=== PATIENT | female | born 1985 | race American Indian/Alaskan Native ===

== ENCOUNTER 2016-07-30 00:48 | Emergency (ER) | payer MEDICAID ==
[2016-07-30 01:03] VITALS: BP 132/55
[2016-07-30 01:17] LABS: Basophils % (Auto) 0.6 % (0.0-1.8); Eosinophils % (Auto) 0.9 % (0.0-4.3); Hematocrit 39.8 % (30.3-42.9); Hemoglobin 13.1 gm/dl (10.1-14.3); Mean Corpuscular HGB Conc 33 % (30-34); Mean Corpuscular Hemoglobin 30 pg (28-32); Mean Corpuscular Volume 90 fl (79-97); Platelet Count 274 K/mm3 (140-440); Red Blood Count 4.43 M/mm3 (3.65-5.03); Red Cell Distribution Width 13.9 % (13.2-15.2); White Blood Count 6.9 K/mm3 (4.5-11.0)
[2016-07-30 02:24] LABS: Bilirubin,Urine NEG (Negative); Blood,Urine NEG (Negative); Ketones,Urine TR mg/dL (Negative); Leukocyte Esterase,Urine NEG (Negative); Mucus,Urine 3+ /HPF; Nitrite,Urine NEG (Negative)
[2016-07-30 02:28] LABS: Alanine Aminotransferase 16 units/L (7-56); Albumin 4.3 g/dL (3.9-5); Albumin/Globulin Ratio 1.3 %; Alkaline Phosphatase 88 units/L (35-129); Anion Gap 16 mmol/L; BUN/Creatinine Ratio 13.33; Bilirubin,Total 0.3 mg/dL (0.1-1.2); Blood Urea Nitrogen 8 mg/dL (7-17); Calcium 9.2 mg/dL (8.4-10.2); Carbon Dioxide 27 mmol/L (22-30); Chloride 97.8 mmol/L (98-107); Glucose 105 mg/dL (65-100); Lipase 35 units/L (13-60); Potassium 3.2 mmol/L (3.6-5.0); Sodium 138 mmol/L (137-145); Total Protein 7.7 g/dL (6.3-8.2)
[2016-07-30] MEDS ORDERED: TORADOL IM ONE (02:53)
--- NOTE | 2016-07-30 02:53 | Emergency Department Report ---
ED Back Pain/Injury HPI - General Chief Complaint: Back Pain/Injury Stated Complaint: LOWER BACK PAIN Time Seen by Provider: 07/30/16 02:48 Source: patient Limitations: No Limitations - History of Present Illness Initial Comments: 31 female presents to emergency room with complaint of mid back and right flank pain for 2 weeks. Denies any injury. Complains of right flank pain increase activities and movement. Patient says he is doing a lot of sodas sobbing in 2 weeks ago since this started expressing pain and right flank area. Does complains of increased frequency urination but denies any blood in urine. MD Complaint: back pain -: Gradual, week(s) (2) Similar Symptoms Previously: No Place: home Radiation: none Severity: mild Severity scale (0 -10): 2 Quality: burning, dull Consistency: constant Improves With: none Worsens With: movement, walking Context: turning/twisting Associated Symptoms: denies other symptoms. denies: abdominal pain - Related Data Previous Rx's Medication Instructions Recorded Last Taken Type Acetaminophen/Codeine [Tylenol 1 tab PO Q6H PRN #12 tab 07/30/16 Unknown Rx /Codeine # 3 tab] Baclofen 20 mg PO BID #14 tablet 07/30/16 Unknown Rx Ketorolac [Toradol] 10 mg PO Q6H PRN #12 tablet 07/30/16 Unknown Rx Allergies Allergy/AdvReac Type Severity Reaction Status Date / Time No Known Allergies Allergy Unverified 10/17/13 12:10 ED Review of Systems ROS: Stated complaint: LOWER BACK PAIN Other details as noted in HPI Comment: All other systems reviewed and negative Constitutional: denies: chills, fever Eyes: denies: eye pain, eye discharge, vision change ENT: denies: ear pain, throat pain Respiratory: denies: cough, shortness of breath, wheezing Cardiovascular: denies: chest pain, palpitations Endocrine: no symptoms reported Gastrointestinal: denies: abdominal pain, nausea, diarrhea Genitourinary: as per HPI, frequency. denies: urgency, dysuria, discharge Musculoskeletal: as per HPI, back pain. denies: joint swelling, arthralgia Skin: denies: rash, lesions Neurological: denies: headache, weakness, paresthesias Psychiatric: denies: anxiety, depression Hematological/Lymphatic: denies: easy bleeding, easy bruising ED Past Medical Hx - Past Medical History Previous Medical History?: No - Surgical History Past Surgical History?: Yes Additional Surgical History: Tubal - Social History Smoking Status: Current Every Day Smoker Substance Use Type: Alcohol - Medications Home Medications: Home Medications Medication Instructions Recorded Confirmed Last Taken Type Acetaminophen/Codeine [Tylenol 1 tab PO Q6H PRN #12 tab 07/30/16 Unknown Rx /Codeine # 3 tab] Baclofen 20 mg PO BID #14 tablet 07/30/16 Unknown Rx Ketorolac [Toradol] 10 mg PO Q6H PRN #12 tablet 07/30/16 Unknown Rx ED Physical Exam - General Limitations: No Limitations General appearance: alert, in no apparent distress - Head Head exam: Present: atraumatic, normocephalic - Eye Eye exam: Present: normal appearance, PERRL, EOMI Pupils: Present: normal accommodation - ENT ENT exam: Present: normal exam, mucous membranes moist - Neck Neck exam: Present: normal inspection - Respiratory Respiratory exam: Present: normal lung sounds bilaterally. Absent: respiratory distress - Cardiovascular Cardiovascular Exam: Present: regular rate, normal rhythm. Absent: systolic murmur, diastolic murmur, rubs, gallop - GI/Abdominal GI/Abdominal exam: Present: soft, normal bowel sounds - Expanded Exam Expanded Female exam: Present: deferred - Extremities Exam Extremities exam: Present: normal inspection, full ROM - Back Exam Back exam: Present: normal inspection, full ROM, CVA tenderness (R) (mild), muscle spasm, paraspinal tenderness (right T10 to L3 area) - Neurological Exam Neurological exam: Present: alert, oriented X3, CN II-XII intact, normal gait, reflexes normal - Psychiatric Psychiatric exam: Present: normal affect, normal mood - Skin Skin exam: Present: warm, dry, intact, normal color. Absent: rash ED Course Vital Signs 07/30/16 00:55 Temperature 98.7 F Pulse Rate 83 Respiratory 18 Rate Blood Pressure 132/55 [Right] O2 Sat by Pulse 99 Oximetry ED Medical Decision Making - Lab Data Result diagrams: 07/30/16 01:05 07/30/16 01:05 - Radiology Data Radiology results: pending (patient refuses to have CT scan of her abdomen and pelvis today) Critical Care Time: No Critical care attestation.: If time is entered above; I have spent that time in minutes in the direct care of this critically ill patient, excluding procedure time. ED Disposition Clinical Impression: Flank pain, acute Disposition: DISCHARGED TO HOME OR SELFCARE Is pt being admited?: No Does the pt Need Aspirin: No Condition: Good Instructions: Flank Pain (ED) Prescriptions: Acetaminophen/Codeine [Tylenol /Codeine # 3 tab] 1 tab PO Q6H PRN #12 tab PRN Reason: Pain Baclofen 20 mg PO BID #14 tablet Ketorolac [Toradol] 10 mg PO Q6H PRN #12 tablet PRN Reason: Pain Referrals: PRIMARY CARE,MD [Primary Care Provider] - 3-5 Days
[2016-07-30] MEDS ORDERED: K-DUR PO ONE (02:54)
== END 2016-07-30 03:24 | disposition home or self-care (01) ==
LOC: ED 00:48
DX: M54.5 Low back pain (principal); R10.9 Unspecified abdominal pain; F17.200 Nicotine dependence, unspecified, uncomplicated; Z98.51 Tubal ligation status
CPT/HCPCS: 36415; 80053; 81001; 83690; 84703; 85025; 96372; 99283; J1885

== ENCOUNTER 2017-05-17 20:07 | Emergency (ER) | payer MEDICAID ==
[2017-05-17 21:21] VITALS: BP 137/89
[2017-05-17] MEDS ORDERED: TYLENOL PO ONE (21:24)
[2017-05-17] MEDS ORDERED: TYLENOL ONE (21:27)
[2017-05-17 21:55] LABS: HCG Qualitative,Urine Negative (Negative)
[2017-05-17 21:59] LABS: Bilirubin,Urine NEG (Negative); Blood,Urine SM (Negative); Color,Urine Yellow (Yellow); Mucus,Urine FEW /HPF; Nitrite,Urine NEG (Negative); Protein,Urine <15 mg/dL mg/dL (Negative)
[2017-05-17 22:01] LABS: Basophils % (Auto) 0.1 % (0.0-1.8); Eosinophils % (Auto) 0.1 % (0.0-4.3); Hematocrit 40.5 % (30.3-42.9); Hemoglobin 13.5 gm/dl (10.1-14.3); Lymphocytes # (Auto) 1.2 K/mm3 (1.2-5.4); Lymphocytes % (Auto) 28.6 % (13.4-35.0); Mean Corpuscular HGB Conc 34 % (30-34); Mean Corpuscular Hemoglobin 30 pg (28-32); Mean Corpuscular Volume 91 fl (79-97); Monocytes # (Auto) 0.4 K/mm3 (0.0-0.8); Monocytes % (Auto) 9.2 % (0.0-7.3); Platelet Count 256 K/mm3 (140-440); Red Blood Count 4.46 M/mm3 (3.65-5.03); Red Cell Distribution Width 13.5 % (13.2-15.2)
[2017-05-17 22:24] LABS: Alanine Aminotransferase 13 units/L (7-56); Albumin 4.3 g/dL (3.9-5); BUN/Creatinine Ratio 18; Blood Urea Nitrogen 9 mg/dL (7-17); Calcium 8.8 mg/dL (8.4-10.2); Hemolysis Index 2
== END 2017-05-17 23:50 | disposition left against medical advice (07) ==
LOC: ED 20:07
DX: M54.9 Dorsalgia, unspecified (principal); Z53.21 Procedure and treatment not carried out due to patient leaving prior to being seen by health care provider
CPT/HCPCS: 36415; 80053; 81001; 81025; 85025